=== PATIENT | male | born 1960 | race Caucasian/White ===

== ENCOUNTER 2022-02-18 13:44 | Inpatient (IN) | payer MEDICAID, OTHER ==
[~2022-02-18] VITALS: Ht 167.6 cm; Wt 83.6 kg
[~2022-02-18 13:44] MED LIST: IBUP1POW13; NAPROXEN; ROBAXIN; VICODIN
[2022-02-18 15:37] LABS: Basophils # (auto) 0.1 10 ^3/uL (0-0.2); Basophils % (auto) 1.1 % (0.0-2.0); Eosinophils # (auto) 0.2 10 ^3/uL (0-0.8); Eosinophils % (auto) 1.3 % (0.0-7.0); Hematocrit 38.1 % (41.0-53.0); Hemoglobin 12.3 g/dL (13.5-17.5); Lymphocytes # (auto) 2.9 10 ^3/uL (0.4-5.4); Lymphocytes % (auto) 22.9 % (10.0-50.0); Mean Corpuscular Hemoglobin 28.1 pg (28.0-32.0); Mean Corpuscular Hgb Conc. 32.4 g/dL (32.0-36.0); Mean Corpuscular Volume 86.8 fL (80.0-100.0); Monocytes # (auto) 1.1 10 ^3/uL (0-1.3); Monocytes % (auto) 9.1 % (0.0-12.0); Neutrophils # (auto) 8.2 10 ^3/uL (1.6-8.6); Neutrophils % (auto) 65.6 % (37.0-80.0); Nucleated Red Blood Cells % 0.1 %; Red Blood Cells 4.39 10^6/uL (4.5-5.90); Red Cell Distribution Width 14.1 % (11.8-14.3); White Blood Cell 12.5 10^3/uL (4.4-10.8)
[2022-02-18 15:50] LABS: Calcium 8.8 mg/dL (8.5-10.1); Potassium 5.2 mmol/L (3.5-5.1)
[2022-02-18 15:52] LABS: Albumin 3.4 g/dL (3.4-5.0); BUN/Creatinine Ratio 22.4
[2022-02-18 15:54] LABS: Bilirubin, Total 0.2 mg/dL (0.2-1.0); Total Protein 7.1 g/dL (6.4-8.2)
[2022-02-18 16:47] LABS: Urine Bacteria FEW /hpf (None Seen); Urine Blood Negative /uL (Negative); Urine Specific Gravity 1.014 (1.001-1.035); Urine WBC <1 /hpf (0 - 3)
[2022-02-18] MEDS ORDERED: TEMAZEPAM 15 MG CAP PO PRN (22:15)
[2022-02-18] MEDS ORDERED: LORazepam 0.5 MG TAB PO PRN (22:15)
[2022-02-18] MEDS ORDERED: ACETAMINOPHEN 325 MG TAB PO PRN (22:15)
[2022-02-18] MEDS ORDERED: ONDANSETRON HCL 4 MG/2 ML VIAL IV PRN (22:15)
[2022-02-18] MEDS ORDERED: DOCUSATE SOD 100 MG CAP PO PRN (22:15)
[2022-02-18] MEDS ORDERED: HYDROcodone-ACET 5/325MG TAB PO PRN (22:15)
[2022-02-18] MEDS ORDERED: MORPHINE SULFATE INJ 2 MG/ml SYRG IV PRN (22:15)
[2022-02-18] MEDS ORDERED: FUROSEMIDE 40 MG/4 ML VIAL IV ONE (22:30)
[2022-02-19] MEDS: cefTRIAXone 1GM/50ML D5W 50 ML IV SCH ×2 (00:03→22:15)
[2022-02-19] MEDS: SODIUM CHLORIDE 0.9% 1,000 ML IV SCH ×2 (00:03→15:01)
[2022-02-19 06:26] LABS: BUN/Creatinine Ratio 21.4
[2022-02-19 06:35] LABS: Basophils # (auto) 0.1 10 ^3/uL (0-0.2); Basophils % (auto) 0.6 % (0.0-2.0); Eosinophils # (auto) 0.3 10 ^3/uL (0-0.8); Eosinophils % (auto) 2.2 % (0.0-7.0); Hematocrit 41.7 % (41.0-53.0); Hemoglobin 13.8 g/dL (13.5-17.5); Lymphocytes # (auto) 2.7 10 ^3/uL (0.4-5.4); Lymphocytes % (auto) 23.7 % (10.0-50.0); Mean Corpuscular Hemoglobin 28.7 pg (28.0-32.0); Mean Corpuscular Hgb Conc. 33.1 g/dL (32.0-36.0); Mean Corpuscular Volume 86.7 fL (80.0-100.0); Monocytes # (auto) 1.1 10 ^3/uL (0-1.3); Monocytes % (auto) 9.4 % (0.0-12.0); Neutrophils # (auto) 7.4 10 ^3/uL (1.6-8.6); Neutrophils % (auto) 64.1 % (37.0-80.0); Red Blood Cells 4.81 10^6/uL (4.5-5.90); Red Cell Distribution Width 14.1 % (11.8-14.3); White Blood Cell 11.6 10^3/uL (4.4-10.8)
[2022-02-19 21:45] VITALS: BP 107/72
[2022-02-20 05:04] VITALS: BP 133/82
[2022-02-20] MEDS: SODIUM CHLORIDE 0.9% 1,000 ML IV SCH (07:35)
[2022-02-20 08:52] VITALS: BP 127/90
[2022-02-20 12:00] VITALS: BP 155/91
[2022-02-20 13:21] LABS: Basophils # (auto) 0.1 10 ^3/uL (0-0.2); Eosinophils # (auto) 0.3 10 ^3/uL (0-0.8); Eosinophils % (auto) 2.5 % (0.0-7.0); Lymphocytes # (auto) 2.4 10 ^3/uL (0.4-5.4); Monocytes # (auto) 0.7 10 ^3/uL (0-1.3); Nucleated Red Blood Cells % 0.1 %; Red Blood Cells 4.92 10^6/uL (4.5-5.90)
[2022-02-20 13:23] LABS: Basophils % (auto) 0.6 % (0.0-2.0); Hematocrit 42.8 % (41.0-53.0); Hemoglobin 13.9 g/dL (13.5-17.5); Lymphocytes % (auto) 19.8 % (10.0-50.0); Mean Corpuscular Hemoglobin 28.3 pg (28.0-32.0); Mean Corpuscular Hgb Conc. 32.5 g/dL (32.0-36.0); Monocytes % (auto) 5.5 % (0.0-12.0); Neutrophils # (auto) 8.8 10 ^3/uL (1.6-8.6); Neutrophils % (auto) 71.6 % (37.0-80.0); Red Cell Distribution Width 13.8 % (11.8-14.3); White Blood Cell 12.3 10^3/uL (4.4-10.8)
[2022-02-20 14:40] VITALS: BP 129/89
[2022-02-20 14:51] VITALS: BP 129/89
[2022-02-20 14:55] VITALS: BP 129/89
[2022-02-20 16:54] LABS: BUN/Creatinine Ratio 20.9; Calcium 8.7 mg/dL (8.5-10.1); Magnesium 2.5 mg/dL (1.6-2.6); Potassium 5.2 mmol/L (3.5-5.1)
== END 2022-02-20 15:40 | disposition home or self-care (01) | DRG 251 ==
LOC: ER 13:44 → OVERFLOW 22:19 → WEST WING 02-19 17:27 → TELE-WESTW 02-19 17:30
PROVIDERS: ADMIT Hospitalist; ATTEND Internal Medicine
DX: R10.9 Unspecified abdominal pain (principal); N17.9 Acute kidney failure, unspecified; R07.9 Chest pain, unspecified; K57.30 Diverticulosis of large intestine without perforation or abscess without bleeding; E87.5 Hyperkalemia; N18.4 Chronic kidney disease, stage 4 (severe); I12.9 Hypertensive chronic kidney disease with stage 1 through stage 4 chronic kidney disease, or unspecified chronic kidney disease; Z20.822 Contact with and (suspected) exposure to COVID-19; N40.0 Benign prostatic hyperplasia without lower urinary tract symptoms
CPT/HCPCS: 36415; 71045; 74176; 80048; 80053; 81001; 83735; 83880; 84484; 85025; 93005; 93306; 96361; 96365; 96375; G0378; J0696

== ENCOUNTER → 2022-04-25 | Outpatient (CLI) | payer MEDICAID ==
[~2022-04-25] MED LIST changes: -IBUP1POW13; -NAPROXEN; -VICODIN
== END | disposition home or self-care (01) ==
LOC: Rad HDHVI 08:54
PROVIDERS: ATTEND Internal Medicine Cardiovascular Disease
DX: I08.8 Other rheumatic multiple valve diseases (principal); I50.43 Acute on chronic combined systolic (congestive) and diastolic (congestive) heart failure; R06.02 Shortness of breath
CPT/HCPCS: 93306

== ENCOUNTER → 2022-05-08 | Outpatient (CLI) | payer MEDICAID ==
[~2022-05-08] VITALS: Ht 170.2 cm; Wt 81.6 kg
[~2022-05-08] MED LIST changes: +ADENOSINE 90 MG/30 ML INJ IV ONE
== END | disposition home or self-care (01) ==
LOC: Rad HDHVI 13:26
PROVIDERS: ATTEND Internal Medicine Cardiovascular Disease
DX: I50.43 Acute on chronic combined systolic (congestive) and diastolic (congestive) heart failure (principal); R07.9 Chest pain, unspecified; R06.02 Shortness of breath; R42 Dizziness and giddiness; I25.5 Ischemic cardiomyopathy; J44.9 Chronic obstructive pulmonary disease, unspecified; Z72.0 Tobacco use; Z82.49 Family history of ischemic heart disease and other diseases of the circulatory system; Z87.09 Personal history of other diseases of the respiratory system; Z79.899 Other long term (current) drug therapy
CPT/HCPCS: 78452; 93005; 96374; 96375; A9500; J0153

== ENCOUNTER 2023-01-05 14:08 | Inpatient (IN) | payer MEDICAID ==
[~2023-01-05] VITALS: Ht 170.2 cm; Wt 61.2 kg
[2023-01-05 12:00] VITALS: BP 103/71; PULSE 77; RESP 20; TEMP 97.7; O2SAT 93
[~2023-01-05 14:08] MED LIST changes: -ADENOSINE 90 MG/30 ML INJ IV ONE
[2023-01-05] MEDS ORDERED: FUROSEMIDE 40 MG/4 ML VIAL IV ONE (14:30)
[2023-01-05 14:51] LABS: Basophils # (auto) 0.1 10 ^3/uL (0-0.2); Basophils % (auto) 1.3 % (0.0-2.0); Eosinophils # (auto) 0.4 10 ^3/uL (0-0.8); Eosinophils % (auto) 4.3 % (0.0-7.0); Hematocrit 42.6 % (41.0-53.0); Hemoglobin 14.3 g/dL (13.5-17.5); Lymphocytes % (auto) 23.1 % (10.0-50.0); Mean Corpuscular Hgb Conc. 33.6 g/dL (32.0-36.0); Mean Corpuscular Volume 89.4 fL (80.0-100.0); Monocytes # (auto) 1.1 10 ^3/uL (0-1.3); Neutrophils % (auto) 58.3 % (37.0-80.0); Red Blood Cells 4.77 10^6/uL (4.5-5.90); Red Cell Distribution Width 14.5 % (11.8-14.3); White Blood Cell 8.6 10^3/uL (4.4-10.8)
[2023-01-05 15:20] LABS: Albumin 3.7 g/dL (3.4-5.0); Calcium 8.5 mg/dL (8.5-10.1); Potassium 4.2 mmol/L (3.5-5.1)
[2023-01-05 15:24] LABS: BUN/Creatinine Ratio 20.1 (10.0-20.0); Bilirubin, Total 0.2 mg/dL (0.2-1.0); Total Protein 7.2 g/dL (6.4-8.2)
[2023-01-05] MEDS ORDERED: ONDANSETRON HCL 4 MG/2 ML VIAL IV ONE (15:30)
[2023-01-05] MEDS ORDERED: MORPHINE SULFATE INJ 2 MG/ml SYRG IV ONE ×2 (15:30→17:45)
[2023-01-05 15:35] VITALS: PULSE 79; RESP 24; O2SAT 95
[2023-01-05] MEDS ORDERED: cefTRIAXone 1GM/50ML D5W 50 ML IV ONE (17:30)
[2023-01-05] MEDS ORDERED: metroNIDAZOLE 500MG/100ML 100 ML IV ONE (17:30)
[2023-01-05] MEDS ORDERED: ONDANSETRON HCL 4 MG/2 ML VIAL IV PRN (17:30)
[2023-01-05] MEDS ORDERED: ACETAMINOPHEN 325 MG TAB PO PRN (17:30)
[2023-01-05] MEDS: ENOXAPARIN SOD 40 MG/0.4 ML SYRINGE SC SCH (17:50)
[2023-01-05] MEDS ORDERED: CYCLOBENZAPRINE HCL 10 MG TAB PO ONE (18:45)
[2023-01-05 19:18] LABS: Erythrocyte Sedimentation Rate 7 mm/hr (0-20)
[2023-01-05] MEDS: HYDROmorphone HCL 2 MG/ML VL/or syr IV PRN (20:37)
[2023-01-05] MEDS: SODIUM CHLOR 0.9% PF (SALINE LOCK) 10ML VIAL/SYR IV SCH (22:29)
[2023-01-05] MEDS: FUROSEMIDE 40 MG/4 ML VIAL IV SCH (22:36)
[2023-01-05 22:38] VITALS: PULSE 72; RESP 22; O2SAT 90
[2023-01-05 23:36] VITALS: BP 103/71; PULSE 77; RESP 20; TEMP 97.7; O2SAT 93
[2023-01-06] VITALS (7 sets, daily range): BP systolic 107–135; BP diastolic 71–78; PULSE 73–84; RESP 14–20; TEMP 96.4–98.9; O2SAT 91–96
[2023-01-06] MEDS: HYDROcodone-ACET 5/325MG TAB PO PRN ×3 (02:22→22:52)
[2023-01-06] MEDS: SODIUM CHLOR 0.9% PF (SALINE LOCK) 10ML VIAL/SYR IV SCH ×3 (05:50→21:36)
[2023-01-06] MEDS: FUROSEMIDE 40 MG/4 ML VIAL IV SCH ×2 (10:00→21:35)
[2023-01-06] MEDS: ENOXAPARIN SOD 40 MG/0.4 ML SYRINGE SC SCH (12:12)
[2023-01-06 16:13] LABS: BUN/Creatinine Ratio 17.3 (10.0-20.0); Calcium 8.6 mg/dL (8.5-10.1); Potassium 3.6 mmol/L (3.5-5.1)
[2023-01-06] MEDS ORDERED: IPRATROPIUM BROM 0.5 MG/2.5ML INH SOL NEB PRN (17:15)
[2023-01-06] MEDS ORDERED: ALBUTEROL SULF 2.5 MG/0.5ML(0.5%) NEB SOLN NEB PRN (17:15)
[2023-01-06] MEDS ORDERED: ACET650T12 PO (18:57)
[2023-01-06] MEDS ORDERED: HYDR-4902 (18:57)
[2023-01-06] MEDS ORDERED: BUPR150T18 PO (18:57)
[2023-01-06] MEDS ORDERED: FUR20T PO (18:57)
[2023-01-06] MEDS ORDERED: ALLO100T PO (18:57)
[2023-01-06] MEDS ORDERED: TAMS0.4C36 PO (18:57)
[2023-01-06] MEDS ORDERED: AMLO1TAB23 PO (18:57)
[2023-01-06] MEDS ORDERED: SODI650T PO (18:57)
[2023-01-06] MEDS ORDERED: ATEN25TA PO (18:57)
[2023-01-06] MEDS ORDERED: PANTOPRAZOLE 40 MG/10 ML VIAL INJ IV ONE (19:45)
[2023-01-06] MEDS: HYDROmorphone HCL 2 MG/ML VL/or syr IV PRN (21:35)
[2023-01-07] VITALS (11 sets, daily range): BP systolic 111–145; BP diastolic 55–89; PULSE 70–87; RESP 17–22; TEMP 96.4–99.1; O2SAT 92–99
[2023-01-07] MEDS: SODIUM CHLOR 0.9% PF (SALINE LOCK) 10ML VIAL/SYR IV SCH ×3 (06:08→22:01)
[2023-01-07 06:25] LABS: Anion Gap 6 (5-15); BUN/Creatinine Ratio 16.6 (10.0-20.0); Blood Urea Nitrogen 32 mg/dL (7-18); Calcium 8.4 mg/dL (8.5-10.1); Carbon Dioxide 25 mmol/L (21-32); Chloride 108 mmol/L (98-107); GFR African American 46 mL/min; GFR Non-African American 38 mL/min; Glucose 92 mg/dL (74-106); Potassium 3.8 mmol/L (3.5-5.1); Sodium 139 mmol/L (136-145)
[2023-01-07] MEDS: HYDROmorphone HCL 2 MG/ML VL/or syr IV PRN ×3 (07:11→20:33)
[2023-01-07] MEDS: DOCUSATE SOD 100 MG CAP PO PRN ×2 (10:10→22:06)
[2023-01-07] MEDS: ENOXAPARIN SOD 40 MG/0.4 ML SYRINGE SC SCH (10:11)
[2023-01-07] MEDS: guaiFENesin 200 MG/10 ML UD PO PRN ×2 (10:11→15:44)
[2023-01-07] MEDS: PANTOPRAZOLE 40 MG/10 ML VIAL INJ IV SCH (10:11)
[2023-01-07] MEDS: HYDROcodone-ACET 5/325MG TAB PO PRN (10:11)
[2023-01-07] MEDS: FUROSEMIDE 40 MG/4 ML VIAL IV SCH ×2 (10:14→22:01)
[2023-01-07] MEDS: ENOXAPARIN SOD 100 MG/1 ML SYRINGE SC SCH (22:01)
[2023-01-08] VITALS (9 sets, daily range): BP systolic 112–147; BP diastolic 50–93; PULSE 60–86; RESP 17–21; TEMP 97.8–98.7; O2SAT 92–97
[2023-01-08] MEDS: HYDROmorphone HCL 2 MG/ML VL/or syr IV PRN ×3 (01:03→22:23)
[2023-01-08] MEDS: SODIUM CHLOR 0.9% PF (SALINE LOCK) 10ML VIAL/SYR IV SCH ×3 (05:17→22:23)
[2023-01-08] MEDS ORDERED: IODIXANOL 320MG/ML 100ML BTL IV ONE (06:13)
[2023-01-08] MEDS ORDERED: SODIUM CHLORIDE 0.9% 1,000 ML IV SCH (07:30)
[2023-01-08] MEDS ORDERED: IOHEXOL 350 MG/ML 100ML IJ ONE (08:41)
[2023-01-08] MEDS: PANTOPRAZOLE 40 MG/10 ML VIAL INJ IV SCH (08:51)
[2023-01-08] MEDS: guaiFENesin 200 MG/10 ML UD PO PRN (08:51)
[2023-01-08] MEDS: ENOXAPARIN SOD 100 MG/1 ML SYRINGE SC SCH (08:51)
[2023-01-08] MEDS: HYDROcodone-ACET 5/325MG TAB PO PRN (08:52)
[2023-01-08] MEDS: ACETYLCYSTEINE ORAL for CIN 20%(200MG/ML) 4ML PO SCH ×2 (08:52→19:40)
[2023-01-08] MEDS ORDERED: cefTRIAXone 1GM/50ML D5W 50 ML IV ONE (11:30)
[2023-01-08] MEDS ORDERED: AZITHROMYCIN 500MG/ 250ML 250 ML IV ONE (12:30)
[2023-01-08] MEDS: FUROSEMIDE 40 MG/4 ML VIAL IV SCH ×2 (12:36→22:23)
[2023-01-08 13:45] LABS: Base Excess 0.2 mmol/L (-2.0-2.0)
[2023-01-08 18:52] LABS: Base Excess 3.5 mmol/L (-2.0-2.0)
[2023-01-08] MEDS: DOCUSATE SOD 100 MG CAP PO PRN (22:23)
[2023-01-09 05:00] VITALS: BP 137/91; PULSE 79; RESP 18; TEMP 99; O2SAT 97
[2023-01-09 05:45] VITALS: O2SAT 98
[2023-01-09] MEDS: SODIUM CHLOR 0.9% PF (SALINE LOCK) 10ML VIAL/SYR IV SCH ×2 (06:00→13:57)
[2023-01-09] MEDS: ACETYLCYSTEINE ORAL for CIN 20%(200MG/ML) 4ML PO SCH (07:56)
[2023-01-09 08:00] VITALS: BP 139/54; PULSE 83; PULSE 91; RESP 19; TEMP 37.2; O2SAT 99
[2023-01-09 08:30] VITALS: BP 139/95; PULSE 83; RESP 19; TEMP 97.7; O2SAT 99
[2023-01-09] MEDS ORDERED: cefTRIAXone 1GM/50ML D5W 50 ML IV SCH (09:00)
[2023-01-09] MEDS: PANTOPRAZOLE 40 MG/10 ML VIAL INJ IV SCH (09:44)
[2023-01-09] MEDS: HYDROmorphone HCL 2 MG/ML VL/or syr IV PRN (09:47)
[2023-01-09] MEDS ORDERED: ENOXAPARIN SOD 40 MG/0.4 ML SYRINGE SC SCH (10:00)
[2023-01-09] MEDS ORDERED: AZITHROMYCIN 500MG/ 250ML 250 ML IV SCH (10:00)
[2023-01-09] MEDS ORDERED: DOXY-286 PO (11:03)
[2023-01-09 11:42] LABS: BUN/Creatinine Ratio 13.8 (10.0-20.0); Calcium 9.1 mg/dL (8.5-10.1); Potassium 3.4 mmol/L (3.5-5.1)
[2023-01-09 13:00] VITALS: BP 132/80; PULSE 73; RESP 19; TEMP 98.2; O2SAT 100
[2023-01-09 15:18] VITALS: BP 139/54; TEMP 36.8
== END 2023-01-09 16:27 | disposition home or self-care (01) | DRG 133 ==
LOC: EDBD 14:08 → ER 14:08 → OVERFLOW 17:25 → WEST WING 23:36 → TELE-WESTW 01-06 14:29
PROVIDERS: ADMIT Internal Medicine; ATTEND Internal Medicine
DX: J96.01 Acute respiratory failure with hypoxia (principal); N17.0 Acute kidney failure with tubular necrosis; I50.33 Acute on chronic diastolic (congestive) heart failure; J15.6 Pneumonia due to other Gram-negative bacteria; I13.0 Hypertensive heart and chronic kidney disease with heart failure and stage 1 through stage 4 chronic kidney disease, or unspecified chronic kidney disease; K76.0 Fatty (change of) liver, not elsewhere classified; J15.9 Unspecified bacterial pneumonia; J44.0 Chronic obstructive pulmonary disease with (acute) lower respiratory infection; N18.32 Chronic kidney disease, stage 3b; N40.0 Benign prostatic hyperplasia without lower urinary tract symptoms; R10.11 Right upper quadrant pain; F17.210 Nicotine dependence, cigarettes, uncomplicated; Z86.73 Personal history of transient ischemic attack (TIA), and cerebral infarction without residual deficits
CPT/HCPCS: 36415; 36600; 71045; 71275; 74176; 76700; 78582; 80048; 80053; 82805; 83880; 84484; 85025; 85379; 85652; 86141; 93005; 93306; 93970; 94640; 96365; 96375; 96376; C9113; G0378; J0696; J2405; J3490; Q9967

== ENCOUNTER 2025-04-21 09:19 | Emergency (ER) | payer MEDICAID ==
[~2025-04-21 09:19] MED LIST changes: +ACET650T12 PO; +ALLO100T PO; +AMLO1TAB23 PO; +ATEN25TA PO; +BUPR150T18 PO; +DOXY-286 PO; +FURO20TA4 PO; +HYDR-4902; -ROBAXIN; +SODI650T PO; +TAMS0.4C39 PO
== END 2025-04-21 10:25 | disposition left against medical advice (07) ==
LOC: ER 09:25
DX: Z00.8 Encounter for other general examination (principal); Z53.21 Procedure and treatment not carried out due to patient leaving prior to being seen by health care provider

== ENCOUNTER 2025-04-21 10:03 | Outpatient (CLI) | payer MEDICAID ==
[~2025-04-21] VITALS: Ht 167.6 cm; Wt 99.8 kg
[2025-04-21] MEDS: REGADENOSON 0.4 MG/5 ML SYRG IV ONE ×2 (11:35→11:41)
--- NOTE | 2025-04-26 08:18 | DVHSR ---
APPROVED REPORT Exam: Nuclear Stress Test BMI: 0 Stress Test Details Stress Test: Pharmacologic stress testing performed using 0.4 mg of regadenoson per 5 mL given IV over 10 seconds. HR Resting HR: 76 bpm Max Heart Rate (APMHR): 158.488813 bpm Max HR Achieved: 100 bpm Target HR (85% APMHR): 134.505157 bpm % of APMHR: 63.29 Recovery HR: 84 bpm BP Resting BP: 144/93 mmHg Recovery BP: 129/84 mmHg ECG Resting ECG: Sinus Rhythm Clinical Reason for Termination: Completed protocol Nurse Comments Recieved pt. from [facility]. A/Ox4 on RA. Connected to quality assurance monitor chassis, VS stable. PIV flushes well. Reviewed POC. Pt. verbalized understanding of procedure including risks and side effects, agrees for stress testing. Lexiscan stress test performed per protocol. [facility] tech administered Cardiolite. Pt. tolerated well. Pt. stable, no change on exam. VS returned to baseline. Transferred to [facility] via wheelchair w/ tech. Stress ECG Conclusion lvef 68% no severe ischemia poor quality stress imaging NM EXAM: Myocardial Perfusion REST/STRESS Imaging Protocol: Rest Tc-99m/Stress Tc-99m 1 day Resting Data Rest SPECT myocardial perfusion imaging was performed in supine position 60 minutes following the intravenous injection of 11.5 mCi of Tc-99m Sestamibi. Time of rest injection: 10:30 Date: 04/21/2025 Time of rest imagin:30 Date: 04/21/2025 Administration Route: IV Administration Site: Left Arm Pharmacologic Stress Pharmacologic stress test was performed by injecting Regadenoson 0.4 mg IV push followed by the intravenous injection of 30.8 mCi of Tc-99m Sestamibi. Time of stress injection: 11:40 Date: 04/21/2025 Time of stress imagin:40 Date: 04/21/2025 Administration Route: IV Administration Site: Left Arm Gated Stress SPECT was performed 60 minutes after stress injection. The images were gated to evaluate regional wall motion and calculate left ventricular ejection fraction. Stress only was performed in the Supine position. Nuclear Conclusion Nuclear Findings: negative for ischemia lvef 68% no severe ischemia poor quality stress imaging
== END 2025-04-21 17:00 | disposition home or self-care (01) ==
LOC: XYW 10:03
PROVIDERS: ATTEND Internal Medicine
DX: R06.02 Shortness of breath (principal)
CPT/HCPCS: 78452; 93017; A9500; J2785